=== PATIENT | female | born 1950 | race Caucasian/White ===

== ENCOUNTER 2020-04-26 08:34 | Outpatient (CLI) | payer MEDICARE, OTHER ==
--- NOTE | 2020-04-26 15:29 | Ultrasound Report ---
PROCEDURE: Abdomen Complete INDICATIONS: ABDOMINAL PAIN TECHNIQUE: Real-time scanning was performed of the abdominal and retroperitoneal organs, with image documentatio n. COMPARISON: None. FINDINGS: Liver: Liver is enlarged measuring 17.9 cm. There are multiple hyperechoic foci within the right lob e measuring 14 x 11 x 9 mm and 18 x 12 x 23 mm. Gallbladder: No stones are identified. Wall thickness is within normal limits measuring 8 mm. Biliary ducts: Intrahepatic bile ducts are non-dilated. Extrahepatic bile duct caliber measures 2.4 mm. Normal is 6-7 mm or less in diameter, or 10 mm or less post-cholecystectomy. Pancreas: Visualized portions of the pancreas are sonographically normal. Spleen: Spleen is normal in size and homogeneous in echotexture. Kidneys: Kidneys are normal in size and echotexture. Right kidney measures 11.7 cm long; left kidne y measures 10.3 cm long. No hydronephrosis or nephrolithiasis. No solid masses. Aorta: Visualized aorta is normal in caliber at less than 3 cm. Iliacs: Proximal common iliac arteries are normal in caliber at less than 2.5 cm. IVC: Intrahepatic inferior vena cava is patent. Miscellaneous: No free abdominal fluid. Partially visualized pericardial fluid is noted. IMPRESSION: Hyperechoic hepatic foci as above suspicious for hemangioma. Given no prior exams are available for c omparison. CT or MRI with hepatic protocol is recommended for further evaluation. Partially visualized pericardial fluid. Effusion cannot be excluded. Further evaluation with echo or CT chest is recommended as indicated. Reviewed by: Ofelia Gusman MD on 04/26/2020 3:28 PM PST Approved by: Ofelia Gusman MD on 04/26/2020 3:28 PM PST Station ID: [id number]
== END 2020-04-26 08:35 | disposition home or self-care (01) ==
LOC: DI 08:34
PROVIDERS: ATTEND Nurse Practitioner Family
DX: R10.9 Unspecified abdominal pain (principal)

== ENCOUNTER 2023-09-10 12:36 | Outpatient (CLI) | payer MEDICARE | END 2023-09-10 12:37 | disposition home or self-care (01) | LOC: DI 12:36 | PROVIDERS: ATTEND Nurse Practitioner Family | DX: R01.1 Cardiac murmur, unspecified (principal); I07.1 Rheumatic tricuspid insufficiency; I87.8 Other specified disorders of veins | CPT/HCPCS: 93307 ==